=== PATIENT | female | born 2000 | race Caucasian/White ===

== ENCOUNTER 2021-01-04 22:20 | Emergency (ER) | payer OTHER ==
[~2021-01-04] VITALS: Ht 154.9 cm; Wt 90.7 kg
[~2021-01-04 22:20] MED LIST: CONCERTA
== END 2021-01-05 02:48 | disposition home or self-care (01) ==
LOC: ER 22:20
DX: S06.0X9A Concussion with loss of consciousness of unspecified duration, initial encounter (principal); S81.012A Laceration without foreign body, left knee, initial encounter; S20.211A Contusion of right front wall of thorax, initial encounter; V49.9XXA Car occupant (driver) (passenger) injured in unspecified traffic accident, initial encounter
CPT/HCPCS: 12001; 70450; 71046; 73562-LT; 90714; 99284-25; A9270